=== PATIENT | male | born 1990 | race Caucasian/White ===

== ENCOUNTER 2023-07-23 07:44 | Outpatient (CLI) | payer OTHER ==
--- NOTE | 2023-07-26 08:25 | MRI Report ---
PROCEDURE: BRAIN W/WO INDICATIONS: NARCOLEPSY CONTRAST: CLARISCAN 23.6 ML TECHNIQUE: Noncontrast axial T1 spin echo, axial T2 fast spin echo, sagittal and axial FLAIR, coronal T2 fast sp in echo, axial gradient echo, axial diffusion and ADC through the brain. After the administration of contrast, axial and coronal T1 spin echo with fat saturation through the brain. COMPARISON: None. FINDINGS: Image quality: Excellent. CSF spaces: Basal cisterns are patent. No extra-axial fluid collections. Ventricles are normal in size and shape. Brain: No midline shift. No intracranial bleeds or masses. No abnormal intracranial enhancement. The brainstem appears normal. Diffusion-weighted images demonstrate no acute ischemic insults. No c hronic ischemic insults. Normal intravascular flow voids are present. Skull and face: Calvarial marrow is normal in signal. Orbits appear normal. Sinuses: Mild paranasal sinus mucosal thickening. The mastoids appear clear. IMPRESSION: No cause for patient's symptoms are identified. No acute intracranial abnormalities. Unremarkable MRI of the brain. Reviewed by: Veto Torres MD on 07/26/2023 8:24 AM PST Approved by: Veto Torres MD on 07/26/2023 8:24 AM PST Station ID: [id number]
== END 2023-07-23 07:45 | disposition home or self-care (01) ==
LOC: DI 07:44
DX: G47.411 Narcolepsy with cataplexy (principal)
CPT/HCPCS: 70553; A9575